=== PATIENT | female | born 1975 | race Hispanic/Latino ===

== ENCOUNTER 2020-08-16 10:35 | Outpatient (CLI) | payer OTHER | END 2020-08-16 10:36 | disposition home or self-care (01) | LOC: CSHMRI 10:35 | PROVIDERS: ATTEND Nurse Practitioner Family | DX: M54.12 Radiculopathy, cervical region (principal); M47.812 Spondylosis without myelopathy or radiculopathy, cervical region | CPT/HCPCS: 72141 ==

== ENCOUNTER 2021-10-01 08:59 | Emergency (ER) | payer OTHER ==
[2021-10-01 10:07] LABS: Bilirubin Neg (Negative); Blood, Urine Negative (Negative); Glucose, Urine (Dipstick) Normal (Negative); Ketone, Urine Negative (Negative); Leukocyte Negative (Negative); Nitrite Negative (Negative); Protein, Urine (Dipstick) Negative (Neg-Trace); Specific Gravity, Urine 1.005 (1.002-1.036); Urobilinogen Normal mg/dL (Less than 2)
[2021-10-01 10:07] LABS: #Monocytes 0.5 10x3/uL (0.0-1.1); #Neutrophils 2.9 10x3/uL (1.5-8.4); %Basophils 0.4 % (0.0-2.0); %Eosinophils 0.2 % (0.0-6.0); %Lymphocytes 24.2 % (18.0-47.0); %Monocytes 10.5 % (0.0-10.0); %Neutrophils 64.3 % (40.0-75.0); Hemoglobin 12.5 g/dL (12.0-15.5); Mean Corpuscular HGB CONC 34.8 g/dL (32.0-36.0); Mean Corpuscular Hemoglobin 26.8 pg (27.0-33.0); Mean Platelet Volume 10.2 fl (7.4-10.4); Platelet Count 166 10x3/uL (150-450); RBC Distribution Width 13.7 % (11.5-14.5); Red Blood Cell (RBC) Count 4.66 10x6/uL (3.90-5.03); White Blood Cell (WBC) Count 4.5 10x3/uL (3.5-10.5)
[2021-10-01 10:09] LABS: Clarity Clear (Clear)
[2021-10-01 10:15] LABS: ALT (SGPT) 58 U/L (8-55); AST (SGOT) 86 U/L (5-34); Albumin 4.3 g/dL (3.5-5.0); Alkaline Phosphatase 125 U/L (40-110); Anion Gap 14 mmol/L (10-20); BUN (Urea Nitrogen) 11 mg/dL (7.0-18.7); Bilirubin, Total 0.5 mg/dL (0.2-1.2); Calc. Creatinine Clearance 0 mL/min (70-130); Calcium 9.5 mg/dL (7.8-10.44); Carbon Dioxide 22 mmol/L (22-29); Chloride 103 mmol/L (98-107); Glucose 103 mg/dL (70-105); Potassium 4.3 mmol/L (3.5-5.1); Protein, Total 7.3 g/dL (6.0-8.3); Sodium 135 mmol/L (136-145)
[2021-10-01] MEDS ORDERED: Iopamidol 300 61% 100 ML VIAL FS ONE (10:29)
[2021-10-01 10:45] LABS: SARS-CoV-2 NAA Rapid Test Not Detected (NotDetected)
[2021-10-01] MEDS ORDERED: Ketorolac Tromethamine 30 MG/ML VIAL ONE (11:04)
== END 2021-10-01 13:57 | disposition home or self-care (01) ==
LOC: CSHERS 08:59
DX: B34.9 Viral infection, unspecified (principal); K21.9 Gastro-esophageal reflux disease without esophagitis
CPT/HCPCS: 71045; 74177; 80053; 81003; 83605; 85025; 87040; 87086; 87804; 96374; J1885; Q9967; U0002

== ENCOUNTER 2022-01-10 15:11 | Emergency (ER) | payer OTHER ==
[2022-01-10 16:19] LABS: #Eosinphils 0.1 10x3/uL (0.0-0.5); #Monocytes 0.6 10x3/uL (0.0-1.1); #Neutrophils 2.5 10x3/uL (1.5-8.4); %Basophils 0.5 % (0.0-2.0); %Eosinophils 1.9 % (0.0-6.0); %Lymphocytes 42.3 % (18.0-47.0); %Monocytes 10.1 % (0.0-10.0); Hemoglobin 11.7 g/dL (12.0-15.5); Mean Corpuscular HGB CONC 33.8 g/dL (32.0-36.0); Mean Corpuscular Hemoglobin 25.8 pg (27.0-33.0); Mean Corpuscular Volume 76.4 fl (81.6-98.3); Mean Platelet Volume 9.9 fl (7.4-10.4); Platelet Count 288 10x3/uL (150-450); RBC Distribution Width 14.3 % (11.5-14.5); Red Blood Cell (RBC) Count 4.53 10x6/uL (3.90-5.03); White Blood Cell (WBC) Count 5.8 10x3/uL (3.5-10.5)
[2022-01-10 16:37] LABS: ALT (SGPT) 42 U/L (8-55); AST (SGOT) 38 U/L (5-34); Alkaline Phosphatase 170 U/L (40-110); Anion Gap 14 mmol/L (10-20); BUN (Urea Nitrogen) 10 mg/dL (7.0-18.7); Bilirubin, Total 0.3 mg/dL (0.2-1.2); Calc. Creatinine Clearance 0 mL/min (70-130); Calcium 9.3 mg/dL (7.8-10.44); Carbon Dioxide 23 mmol/L (22-29); Chloride 105 mmol/L (98-107); Estimated GFR 90; Globulin 3.8 g/dL (2.4-3.5); Glucose 113 mg/dL (70-105); Potassium 3.9 mmol/L (3.5-5.1); Protein, Total 7.8 g/dL (6.0-8.3); Sodium 138 mmol/L (136-145)
[2022-01-10] MEDS ORDERED: Oxacillin 2 GM in Sodium Chloride 0.9% 100 ML IVPB SCH (17:45)
[2022-01-10 17:46] LABS: Bilirubin Neg (Negative); Blood, Urine Negative (Negative); Clarity Clear (Clear); Glucose, Urine (Dipstick) Normal (Negative); Ketone, Urine Negative (Negative); Leukocyte 25 (Negative); Nitrite Negative (Negative); Protein, Urine (Dipstick) 15 mg/dl (Neg-Trace); Specific Gravity, Urine 1.015 (1.005-1.030); Urobilinogen Normal mg/dL (Less than 2)
[2022-01-10] MEDS ORDERED: Ondansetron PF 4 MG/2 ML Vial ONE (17:47)
[2022-01-10] MEDS ORDERED: Acetaminophen 500 MG TAB ONE (17:55)
[2022-01-10 17:58] LABS: Bacteria/HPF 1+ HPF (None Seen); Mucous/LPF 1+ LPF (<2+); RBC/HPF 0-3 HPF (0-3)
[2022-01-10] MEDS ORDERED: Meropenem 1 GM in Sodium Chloride 0.9% 100 ML IVPB SCH (18:15)
== END 2022-01-10 21:18 | disposition short-term general hospital (02) ==
LOC: CSHERS 15:11
DX: N12 Tubulo-interstitial nephritis, not specified as acute or chronic (principal); R11.0 Nausea; R00.0 Tachycardia, unspecified; Z16.24 Resistance to multiple antibiotics
CPT/HCPCS: 36415; 80053; 81003; 81015; 83605; 85025; 87040; 96374; 96375; J2185; J2405; J2700; J3370; J3490

== ENCOUNTER 2022-06-15 12:32 | Emergency (ER) | payer OTHER ==
[2022-06-15 13:47] LABS: Bilirubin Neg (Negative); Blood, Urine 50 (Negative); Clarity Cloudy (Clear); Glucose, Urine (Dipstick) Normal (Negative); Ketone, Urine Negative (Negative); Leukocyte 500 (Negative); Nitrite Positive (Negative); Protein, Urine (Dipstick) 30 mg/dl (Neg-Trace); Urobilinogen Normal mg/dL (Less than 2)
[2022-06-15 14:01] LABS: Bacteria/HPF 4+ HPF (None Seen); RBC/HPF 0-3 HPF (0-3); Squamous Epithelial 0-3 HPF (0-3); WBC/HPF 21-50 HPF (0-3)
[2022-06-15] MEDS ORDERED: HYDROcodone/Acetaminophen 5/325 mg Tablet ONE (14:32)
== END 2022-06-15 14:37 | disposition home or self-care (01) ==
LOC: CSHERS 12:32
DX: N30.01 Acute cystitis with hematuria (principal); N12 Tubulo-interstitial nephritis, not specified as acute or chronic; K21.9 Gastro-esophageal reflux disease without esophagitis; Z79.899 Other long term (current) drug therapy
CPT/HCPCS: 81003; 81015; 87077; 87086; 87186; 99283

== ENCOUNTER 2023-01-11 09:00 | Outpatient (CLI) | payer OTHER | END 2023-01-11 09:01 | disposition home or self-care (01) | LOC: CSHCT 09:00 | PROVIDERS: ATTEND Physician Assistant Medical | DX: R10.12 Left upper quadrant pain (principal); R79.89 Other specified abnormal findings of blood chemistry; K76.0 Fatty (change of) liver, not elsewhere classified; K76.89 Other specified diseases of liver; R22.2 Localized swelling, mass and lump, trunk | CPT/HCPCS: 74177 ==

== ENCOUNTER 2024-01-10 14:04 | Emergency (ER) | payer SELFPAY ==
[2024-01-10 15:48] LABS: #Basophils 0.03 10x3/uL (0.0-0.2); #Eosinphils 0.24 10x3/uL (0.0-0.5); #Monocytes 0.44 10x3/uL (0.0-1.1); #Neutrophils 2.91 10x3/uL (1.5-8.4); %Basophils 0.5 % (0.0-2.0); %Lymphocytes 39.8 % (18.0-47.0); %Monocytes 7.3 % (0.0-10.0); %Neutrophils 48.2 % (40.0-75.0); Hematocrit 36.6 % (34.9-44.5); Hemoglobin 11.9 g/dL (12.0-15.5); Mean Corpuscular HGB CONC 32.5 g/dL (32.0-36.0); Mean Corpuscular Hemoglobin 26.6 pg (27.0-33.0); Mean Corpuscular Volume 81.9 fL (81.6-98.3); Mean Platelet Volume 10.2 fL (7.4-10.4); Platelet Count 231 10x3/uL (150-450); RBC Distribution Width 13.3 % (11.5-14.5); Red Blood Cell (RBC) Count 4.47 10x6/uL (3.90-5.03)
[2024-01-10 15:55] LABS: Bilirubin Neg (Negative); Blood, Urine 250 (Negative); Clarity Cloudy (Clear); Glucose, Urine (Dipstick) Normal (Negative); Ketone, Urine Negative (Negative); Leukocyte 100 (Negative); Nitrite Negative (Negative); Protein, Urine (Dipstick) 30 mg/dl (Neg-Trace); Urobilinogen Normal mg/dL (Less than 2)
[2024-01-10 16:24] LABS: ALT (SGPT) 53 U/L (8-55); AST (SGOT) 30 U/L (5-34); Albumin 3.9 g/dL (3.5-5.0); Alkaline Phosphatase 131 U/L (40-110); Anion Gap 12 mmol/L (10-20); BUN (Urea Nitrogen) 10 mg/dL (7.0-18.7); Bilirubin, Total 0.3 mg/dL (0.2-1.2); Calc. Creatinine Clearance 0 mL/min (70-130); Calcium 9.4 mg/dL (7.8-10.44); Carbon Dioxide 27 mmol/L (22-29); Chloride 104 mmol/L (98-107); Estimated GFR 93; Globulin 3.1 g/dL (2.4-3.5); Glucose 106 mg/dL (70-105); Potassium 3.8 mmol/L (3.5-5.1); Sodium 139 mmol/L (136-145)
[2024-01-10] MEDS ORDERED: Morphine 4 MG/ML VIAL ONE (16:40)
[2024-01-10] MEDS ORDERED: Ondansetron PF 4 MG/2 ML Vial ONE (16:40)
[2024-01-10 16:54] LABS: CAUTI Indications for Culture Pelvic or flank pain; RBC/HPF Greater than 50 HPF (0-3); Squamous Epithelial 0-3 HPF (0-3); WBC/HPF 0-3 HPF (0-3)
[2024-01-10 16:55] LABS: Bacteria/HPF None Seen HPF (None Seen); Urine Culture Reflex No No
[2024-01-10 17:17] LABS: Lipase 59 U/L (8-78)
== END 2024-01-10 19:09 | disposition home or self-care (01) ==
LOC: CSHERS 14:04
DX: N23 Unspecified renal colic (principal)
CPT/HCPCS: 74177; 80053; 81001; 83605; 83690; 83735; 85025; 96374; 96375; J2272; J2405